=== PATIENT | female | born 1975 | race Caucasian/White ===

== ENCOUNTER 2017-04-16 09:30 | Outpatient (CLI) | payer BC ==
--- NOTE | 2017-04-16 11:51 | ULT ---
GALLBLADDER ULTRASOUND: Date: 04/16/17 HISTORY: Cholesterolosis of gallbladder, right upper quadrant pain. FINDINGS: The liver demonstrates homogeneous echotexture without focal mass or intrahepatic ductal dilatation. No gallstones, gallbladder wall thickening, or pericholecystic fluid is seen. There is a small amount of sludge in the gallbladder. A 4.0 mm nonshadowing echogenic focus arising from the wall of the gal lbladder (demonstrates no mobility) is consistent with polyp. The common duct measures 6.0 mm in diameter. The right kidney and pancreas are normal. No free fluid is seen in Morison's pouch. IMPRESSION: 4.0 mm gallbladder polyp. POS: [facility]
== END 2017-04-16 09:31 | disposition home or self-care (01) ==
LOC: ULT 09:30
PROVIDERS: ATTEND Internal Medicine Gastroenterology
DX: K82.4 Cholesterolosis of gallbladder (principal)
CPT/HCPCS: 76705

== ENCOUNTER 2022-02-08 13:31 | Outpatient (CLI) | payer BC ==
[2022-02-08 16:03] LABS: #Basophils 0.1 10x3/uL (0.0-0.2); #Eosinphils 0.2 10x3/uL (0.0-0.5); #Monocytes 0.5 10x3/uL (0.0-1.1); %Basophils 0.8 % (0.0-2.0); %Eosinophils 2.1 % (0.0-6.0); %Lymphocytes 23.5 % (18.0-47.0); %Monocytes 6.9 % (0.0-10.0); %Neutrophils 66.4 % (40.0-75.0); Hemoglobin 12.5 g/dL (12.0-15.5); Mean Corpuscular HGB CONC 33.1 g/dL (32.0-36.0); Mean Corpuscular Hemoglobin 31.4 pg (27.0-33.0); Mean Platelet Volume 8.8 fl (7.4-10.4); Platelet Count 454 10x3/uL (150-450); RBC Distribution Width 13.3 % (11.5-14.5); Red Blood Cell (RBC) Count 3.98 10x6/uL (3.90-5.03); White Blood Cell (WBC) Count 7.5 10x3/uL (3.5-10.5)
[2022-02-08 16:18] LABS: Anion Gap 15 mmol/L (10-20); BUN (Urea Nitrogen) 9 mg/dL (7.0-18.7); Calc. Creatinine Clearance 0 mL/min (70-130); Calcium 9.4 mg/dL (7.8-10.44); Carbon Dioxide 26 mmol/L (22-29); Chloride 105 mmol/L (98-107); Estimated GFR 99; Glucose 100 mg/dL (70-105); Potassium 3.7 mmol/L (3.5-5.1); Sodium 142 mmol/L (136-145)
== END 2022-02-08 13:32 | disposition home or self-care (01) ==
LOC: LABBT 13:31
PROVIDERS: ATTEND Specialist
DX: Z01.812 Encounter for preprocedural laboratory examination (principal); K40.90 Unilateral inguinal hernia, without obstruction or gangrene, not specified as recurrent
CPT/HCPCS: 80048; 85025

== ENCOUNTER 2022-02-15 08:35 | Day surgery (SDC) | payer BC ==
[2022-02-13 14:26] VITALS: BMI 36.8
[2022-02-15] MEDS ORDERED: Ketorolac Tromethamine 30 MG/ML VIAL ONE (09:09)
[2022-02-15] MEDS ORDERED: Acetaminophen 500 MG TAB ONE ×2 (09:09→09:10)
[2022-02-15] MEDS ORDERED: Bupivacaine/Epinephrine 0.25% 30 ML VIAL ONE (09:18)
[2022-02-15] MEDS ORDERED: CEFAZOLIN 2 GM VIAL ONE (09:26)
[2022-02-15] MEDS ORDERED: Sodium Chloride 0.9% 0 ML ONE (09:26)
[2022-02-15] MEDS ORDERED: Levofloxacin 500 mg/D5W 100 ml Premix Bag ONE (09:30)
[2022-02-15] MEDS ORDERED: fentaNYL PF 100 MCG/2 ML SYRINGE ONE (09:30)
[2022-02-15] MEDS ORDERED: SUGAMMADEX SODIUM 200 MG/2 ML VIAL ONE (09:30)
[2022-02-15] MEDS ORDERED: Rocuronium Bromide 10 MG/ML (10ML VIAL) ONE (10:03)
[2022-02-15] MEDS ORDERED: Dexamethasone 20 MG/5 ML VIAL ONE (10:03)
[2022-02-15] MEDS ORDERED: PROPOFOL 200 MG/20 ML VIAL ONE (10:03)
[2022-02-15] MEDS ORDERED: Ondansetron PF 4 MG/2 ML Vial ONE (10:03)
[2022-02-15] MEDS ORDERED: Phenylephrine 10 MG/ML VIAL ONE (10:03)
[2022-02-15] MEDS ORDERED: ePHEDrine 50 MG/ML VIAL ONE (10:03)
[2022-02-15] MEDS ORDERED: PHENYLEPHRINE-NS 100 MCG/ML 10 ML SYRINGE ONE (11:05)
[2022-02-15] MEDS ORDERED: FENTANYL 50 MCG/ML 1 ML VIAL ONE ×3 (11:56→12:35)
[2022-02-15] MEDS ORDERED: HYDROcodone/Acetaminophen 5/325 mg Tablet ONE (13:38)
[2022-02-15] MEDS ORDERED: Ondansetron ODT 4 MG TAB ONE (13:49)
== END 2022-02-15 14:15 | disposition home or self-care (01) ==
LOC: SDC 08:35
PROVIDERS: ATTEND Specialist
PROC: 0YU54JZ Supplement Right Inguinal Region with Synthetic Substitute, Percutaneous Endoscopic Approach (ICD-10-PCS; principal; 2022-02-15)
PROC: 8E0W4CZ Robotic Assisted Procedure of Trunk Region, Percutaneous Endoscopic Approach (ICD-10-PCS; principal; 2022-02-15)
PROC: 0WQF0ZZ Repair Abdominal Wall, Open Approach (ICD-10-PCS; principal; 2022-02-15)
DX: K40.90 Unilateral inguinal hernia, without obstruction or gangrene, not specified as recurrent (principal); K42.9 Umbilical hernia without obstruction or gangrene; D17.79 Benign lipomatous neoplasm of other sites; G47.30 Sleep apnea, unspecified; E03.9 Hypothyroidism, unspecified; E06.3 Autoimmune thyroiditis; Z87.891 Personal history of nicotine dependence; Z79.84 Long term (current) use of oral hypoglycemic drugs; Z79.890 Hormone replacement therapy; Z79.899 Other long term (current) drug therapy; Z98.890 Other specified postprocedural states
CPT/HCPCS: C1781; J1100; J1885; J1956; J2370; J2405; J2704; J3010; J3490; Q0162

== ENCOUNTER 2022-11-23 09:08 | Outpatient (CLI) | payer BC | END 2022-11-23 09:09 | disposition home or self-care (01) | LOC: ULT 09:08 | PROVIDERS: ATTEND Nurse Practitioner Family | DX: R10.31 Right lower quadrant pain (principal) | CPT/HCPCS: 76700; 76856 ==